=== PATIENT | female | born 1990 | race Caucasian/White ===

== ENCOUNTER 2017-02-05 16:47 | Emergency (ER) | payer OTHER ==
[2017-02-05 17:23] VITALS: BP 140/74
== END 2017-02-05 17:23 | disposition home or self-care (01) ==
LOC: ED 16:47
DX: S29.011A Strain of muscle and tendon of front wall of thorax, initial encounter (principal); J06.9 Acute upper respiratory infection, unspecified; X58.XXXA Exposure to other specified factors, initial encounter; Y93.89 Activity, other specified; Y92.89 Other specified places as the place of occurrence of the external cause; Y99.8 Other external cause status
CPT/HCPCS: Q0092

== ENCOUNTER 2017-11-11 17:08 | Emergency (ER) | payer OTHER ==
[~2017-11-11] VITALS: Ht 180.3 cm; Wt 108.0 kg
[2017-11-11 17:11] VITALS: Ht 180.3 cm; Wt 108.0 kg
[2017-11-11 18:05] LABS: BASOPHIL % 0.2 % (0-2); PLATELET COUNT 369 x10^3mcL (130-400)
[2017-11-11 18:16] LABS: CALCIUM 8.9 mg/dL (8.5-10.1); CARBON DIOXIDE 25.6 mmol/L (21-32); CHLORIDE SERUM 102 mmol/L (98-107); CREATININE SERUM 0.8 mg/dL (0.6-1.0); GFR1 > 60 mL/min; GLUCOSE SERUM 109 mg/dL (74-106); POTASSIUM SERUM 3.7 mmol/L (3.5-5.1); SODIUM SERUM 137 mmol/L (136-145)
[2017-11-11 18:33] LABS: ALBUMIN 3.7 g/dL (3.4-5.0); ALKALINE PHOSPHATASE 75 U/L (46-116); ALT/SGPT 31 U/L (14-59); AST/SGOT 20 U/L (15-37); BILIRUBIN TOTAL 0.4 mg/dL (0.20-1.00); LIPASE 87 IU/L (73-393)
[2017-11-11 18:40] LABS: TOTAL PROTEIN, SERUM 8.3 g/dL (6.4-8.2)
[2017-11-11 19:19] LABS: microscopic required? NO
[2017-11-11 19:24] LABS: urine erythrocyte NEGATIVE (NEGATIVE)
[2017-11-11 19:35] VITALS: BP 127/78
== END 2017-11-11 19:35 | disposition home or self-care (01) ==
LOC: ED 17:08
PROVIDERS: Emergency Medicine
DX: R10.31 Right lower quadrant pain (principal); R10.32 Left lower quadrant pain; R50.9 Fever, unspecified; R10.33 Periumbilical pain; J02.9 Acute pharyngitis, unspecified
CPT/HCPCS: 83880; J1885; J7030; Q0162

== ENCOUNTER 2017-11-12 17:11 | Emergency (ER) | payer OTHER ==
[~2017-11-12] VITALS: Ht 180.3 cm; Wt 105.2 kg
[2017-11-12 17:14] VITALS: BP 132/93; Ht 180.3 cm; Wt 105.2 kg
== END 2017-11-12 17:54 | disposition home or self-care (01) ==
LOC: ED 17:11
DX: R10.33 Periumbilical pain (principal)

== ENCOUNTER 2018-03-20 10:58 | Emergency (ER) | payer OTHER ==
[~2018-03-20] VITALS: Ht 180.3 cm; Wt 108.4 kg
[2018-03-20 11:05] VITALS: Ht 180.3 cm; Wt 108.4 kg
[2018-03-20 13:36] VITALS: BP 125/62
== END 2018-03-20 13:36 | disposition home or self-care (01) ==
LOC: ED 10:58
DX: J02.9 Acute pharyngitis, unspecified (principal); Z98.890 Other specified postprocedural states

== ENCOUNTER 2019-04-09 15:53 | Emergency (ER) | payer OTHER ==
[~2019-04-09] VITALS: Ht 170.2 cm; Wt 106.6 kg
[2019-04-09 17:38] VITALS: Ht 170.2 cm; Wt 106.6 kg
[2019-04-09 20:43] VITALS: BP 144/98
== END 2019-04-09 20:43 | disposition home or self-care (01) ==
LOC: ED 15:53
DX: J06.9 Acute upper respiratory infection, unspecified (principal)